=== PATIENT | male | born 1990 | race Caucasian/White ===

== ENCOUNTER 2016-06-23 16:00 | Emergency (ER) | payer OTHER ==
[~2016-06-23] VITALS: Ht 172.7 cm; Wt 68.4 kg
[2016-06-23 16:04] VITALS: Ht 172.7 cm; Wt 68.4 kg
[2016-06-23] MEDS ORDERED: NAPR1TAB9 PO (16:58)
[2016-06-23] MEDS ORDERED: TACR0.1O6 TOP (16:58)
--- NOTE | 2016-06-23 17:04 | EMERGENCY ROOM VISIT NOTE ---
History Report prepared by Cristi: Fitz Ramirez Under the Supervision of: Dr. Trell Bush M.D. First contact with patient: 16:49 Chief Complaint: ILLNESS Stated Complaint: BACK/NECK PAIN, FEVER, CHILLS, MA History of Present Illness The patient is a 25 year old male who presents to the Emergency Room with complaints of upper achy back pain that began two days ago. The patient rates his pain a 5/10 in severity. The patient's pain worsens with movement of his neck. The patient began to have headache 3 days ago. He began to worsen the next day. He then started experiencing neck pain, fever, weakness, and chills. He denies any abdominal pain or congestion. The patient travelled to [place] recently, getting back two weeks ago. He denies any sick contacts. The patient has been trying to alleviate his symptoms with Aleve and Advil. The patient did receive a flu shot. Source of History: patient Onset: 2 days ago Position: back (upper) Symptom Intensity: 5/10 Quality: ache Timing: other (persistent) Modifying Factors (Relieving): other (Advil) Associated Symptoms: + chills, + fevers, + headache, + neck pain, + weakness , No abdominal pain Note: He denies any congestion. Review of Systems All systems have been listed, reviewed, and are negative other than those previously mentioned. Please see Additional Medical History Sheet. Past Medical & Surgical Surgical Problems: (1) [place] teeth removed Family History Cancer Lung disease Social History Smoking Status: Never Smoker Smokeless Tobacco Use: No Alcohol Use: none Drug Use: none Marital Status: single Housing Status: lives alone Occupation Status: [employer] student Current/Historical Medications Scheduled PRN Naproxen (Aleve), 220 MG PO UD PRN for Pain Tacrolimus (Topical) (Tacrolimus), 1 APPLN TOP UD PRN for Eczema Allergies Coded Allergies: Latex (Verified Allergy, Unknown, Unknown, 06/23/16) Physical Exam Vital Signs Date Time Temp Pulse Resp B/P Pulse Ox O2 Delivery O2 Flow Rate FiO2 06/23/16 19:01 37.2 99 17 121/80 98 06/23/16 18:53 99 17 121/80 98 06/23/16 16:04 37.2 109 18 125/79 97 Room Air Physical Exam GENERAL: Patient awake, alert, oriented x 3. Patient follows commands. Patient does not appear toxic. Patient is adequately hydrated and well- nourished. Appears to be in no distress. SKIN: No erythema, pallor, cyanosis or rash HEENT: Normal head, pupils equal, reactive to light and accommodation. Ears normal. Oral cavity and posterior pharynx appear normal. Neck: Without adenopathy, no neck vein distention. Supple and nontender. No meningeal findings. LUNGS: Clear to auscultation. No wheezes, no rales, no rhonchi. HEART: No murmurs. No gallops. No rubs ABDOMEN: No masses, no rebound, no hepatomegaly or splenomegaly. EXTREMITIES: No signs of trauma. No pedal or pretibial edema. No calf or thigh tenderness. NEUROLOGIC: Cranial nerves II-XII within normal limits. No gross motor sensory function deficits. Medical Decision & Procedures Laboratory Results 06/23/16 17:18 Red Blood Count 5.04, Mean Corpuscular Volume 84.9, Mean Corpuscular Hemoglobin 31.0, Mean Corpuscular Hemoglobin Concent 36.4, Mean Platelet Volume 9.9, Neutrophils (%) (Auto) 68.1, Lymphocytes (%) (Auto) 20.3, Monocytes (%) (Auto) 11.2, Eosinophils (%) (Auto) 0.0, Basophils (%) (Auto) 0.4, Neutrophils # (Auto ) 3.83, Lymphocytes # (Auto) 1.14, Monocytes # (Auto) 0.63, Eosinophils # (Auto ) 0.00, Basophils # (Auto) 0.02 06/23/16 17:18 Test 06/23/16 17:15 06/23/16 17:18 Influenza Type A (RT-PCR) Neg for Influ A (NEG) Influenza Type B (RT-PCR) Neg for Influ B (NEG) White Blood Count 5.62 K/uL (4.8-10.8) Red Blood Count 5.04 M/uL (4.7-6.1) Hemoglobin 15.6 g/dL (14.0-18.0) Hematocrit 42.8 % (42-52) Mean Corpuscular Volume 84.9 fL (80-100) Mean Corpuscular Hemoglobin 31.0 pg (25-34) Mean Corpuscular Hemoglobin Concent 36.4 g/dl (32-36) Platelet Count 170 K/uL (130-400) Mean Platelet Volume 9.9 fL (7.4-10.4) Neutrophils (%) (Auto) 68.1 % Lymphocytes (%) (Auto) 20.3 % Monocytes (%) (Auto) 11.2 % Eosinophils (%) (Auto) 0.0 % Basophils (%) (Auto) 0.4 % Neutrophils # (Auto) 3.83 K/uL (1.4-6.5) Lymphocytes # (Auto) 1.14 K/uL (1.2-3.4) Monocytes # (Auto) 0.63 K/uL (0.11-0.59) Eosinophils # (Auto) 0.00 K/uL (0-0.5) Basophils # (Auto) 0.02 K/uL (0-0.2) RDW Standard Deviation 37.3 fL (36.4-46.3) RDW Coefficient of Variation 12.1 % (11.5-14.5) Immature Granulocyte % (Auto) 0.0 % Immature Granulocyte # (Auto) 0.00 K/uL (0.00-0.02) Anion Gap 8.0 mmol/L (3-11) Est Creatinine Clear Calc Drug Dose 120.3 ml/min Estimated GFR () 136.1 Estimated GFR (Non- 117.5 BUN/Creatinine Ratio 11.8 (10-20) Calcium Level 8.5 mg/dl (8.5-10.1) Laboratory results as stated above per my review. Medications Administered Medications (Trade) Dose Ordered Sig/Yue Route Start Time Stop Time Status Last Admin Dose Admin Ibuprofen (Motrin Tab) 600 mg NOW STAT PO 06/23/16 17:06 06/23/16 17:08 DC 06/23/16 17:27 600 MG ED Course 1649: Past medical records reviewed. The patient was evaluated in room C9. A complete history and physical examination was performed. 1706: Ibuprofen 600 mg PO 1850: Upon reevaluation, the patient appeared to have improvement of his symptoms. I discussed today's findings with him. He verbalized agreement of the treatment plan. He was discharged home. Medical Decision Nurses notes reviewed. Medical history sheet reviewed. Differential diagnosis includes but is not limited to: meningitis, encephalitis, influenza, and other viral infections. The patient has symptoms most suggestive of an influenza-like infection. Labs were evaluated. Please see above. The patient was given ibuprofen. He was drinking fluids. He was encouraged to continue pushing fluids at home. The patient has no evidence of encephalitis, meningitis or other serious bacterial infections. Impression Primary Impression: Influenza-like illness Scribe Attestation The scribe's documentation has been prepared under my direction and personally reviewed by me in its entirety. I confirm that the note above accurately reflects all work, treatment, procedures, and medical decision making performed by me. Departure Information Dispostion Home / Self-Care Referrals [facility] (PCP) Forms HOME CARE DOCUMENTATION FORM, IMPORTANT VISIT INFORMATION, WORK / SCHOOL INSTRUCTIONS Patient Instructions ED Viral Syndrome, My [facility] Additional Instructions 600 mg of ibuprofen every 6 hours until symptoms have resolved. Drink at least 2-3 quarts of liquid per day. Follow-up here or with a family physician in one week if symptoms are not resolving.
[2016-06-23] MEDS ORDERED: IBUPROFEN 600 MG TAB PO STA (17:06)
[2016-06-23 17:25] LABS: BASO % 0.4 %; BASO ABS # 0.02 K/uL (0-0.2); COMPLETE YES; HEMATOCRIT 42.8 % (42-52); LYMPH % 20.3 %; LYMPH ABS # 1.14 K/uL (1.2-3.4); MEAN CELL VOLUME 84.9 fL (80-100); MEAN CORPUSCULAR HGB CONC 36.4 g/dl (32-36); MEAN PLATELET VOLUME 9.9 fL (7.4-10.4); MONO % 11.2 %; NEUT % 68.1 %; PLATELET COUNT 170 K/uL (130-400); RED BLOOD COUNT 5.04 M/uL (4.7-6.1); WHITE BLOOD COUNT 5.62 K/uL (4.8-10.8)
[2016-06-23 17:42] LABS: BUN/CREATININE RATIO 11.8 (10-20); CALCIUM 8.5 mg/dl (8.5-10.1); CREATININE 0.9 mg/dl (0.60-1.40); POTASSIUM 4.1 mmol/L (3.5-5.1)
[2016-06-23 18:51] LABS: INFLUENZA A PCR Neg for Influ A (NEG); INFLUENZA B PCR Neg for Influ B (NEG)
[2016-06-23 19:01] VITALS: BP 121/80; PULSE 99; TEMP 37.2; O2SAT 98
== END 2016-06-23 19:03 | disposition home or self-care (01) ==
LOC: C.EDB 16:02 → C.EDC 19:03
DX: M54.6 Pain in thoracic spine (principal); R51 Headache; M54.2 Cervicalgia; R50.9 Fever, unspecified; R53.1 Weakness

== ENCOUNTER 2016-06-27 17:37 | Emergency (ER) | payer OTHER ==
[~2016-06-27] VITALS: Ht 172.7 cm; Wt 67.9 kg
[~2016-06-27 17:37] MED LIST: NAPR1TAB9 PO; TACR0.1O6 TOP
[2016-06-27 17:39] VITALS: TEMP 36.6; Ht 172.7 cm; Wt 67.9 kg
[2016-06-27] MEDS ORDERED: OPTIRAY 320 IV PRN (18:15)
--- NOTE | 2016-06-27 18:46 | DIAGNOSTIC IMAGING REPORT ---
CHEST CTA for PULMONARY ARTERIES CT DOSE: 206.45 mGy.cm HISTORY: Atypical chest pain. TECHNIQUE: Multiaxial CT images of the chest were performed following the intravenous administration of contrast to evaluate the pulmonary arteries. Maximal intensity projection images were also obtained. COMPARISON STUDY: None. FINDINGS: There is a normal caliber thoracic aorta with no evidence for dissection. There is no evidence for pulmonary embolus. No pleural effusions. No pneumothorax. The liver and spleen are unremarkable. No mediastinal or hilar lymphadenopathy. The central airways are patent. The lungs are clear. Minimal soft tissue density within the anterior mediastinum favors residual thymic tissue given the patient's age. IMPRESSION: No evidence for pulmonary embolus. Electronically signed by: Wayne Duong M.D. 06/27/2016 6:44 PM Dictated Date/Time: 06/27/2016 6:37 PM
--- NOTE | 2016-06-27 20:09 | EMERGENCY ROOM VISIT NOTE ---
History Report prepared by Cristi: Fady Villareal Under the Supervision of: Dr. Oscar Ellington D.O. First contact with patient: 18:07 Chief Complaint: RESPIRATORY PROBLEMS Stated Complaint: BACK, CHEST AND LEG PAIN Nursing Triage Summary: Went to [facility] today for back pain, CP, and leg pain. Denies history of blood clots. Ddimer was 515, sent for CT. History of Present Illness The patient is a 25 year old male who presents to the Emergency Room with complaints of a persistent illness beginning about 4 days ago. He notes having back pain, occasional chest pain, leg pain, and a headache. He went to [facility] and had an EKG and blood work. He notes the EKG was normal and that the blood work revealed a slightly elevated D-dimer at 5.15. He was referred to have a CT scan to check for potential clotting. Source of History: patient Onset: about 4 days ago Position: other (global) Quality: other (illness) Timing: other (persistent) Associated Symptoms: + back pain, + chest pain, + headache Note: The patient notes having leg pain. Review of Systems See HPI for pertinent positives & negatives. A total of 10 systems reviewed and were otherwise negative. Past Medical & Surgical Surgical Problems: (1) [place] teeth removed Family History Cancer Lung disease Social History Smoking Status: Never Smoker Alcohol Use: none Drug Use: none Marital Status: single Housing Status: lives alone Occupation Status: [employer] student Current/Historical Medications No Active Prescriptions or Reported Meds Allergies Coded Allergies: Latex (Verified Allergy, Unknown, Unknown, 06/27/16) Physical Exam Vital Signs Date Time Temp Pulse Resp B/P Pulse Ox O2 Delivery O2 Flow Rate FiO2 06/27/16 20:15 67 18 110/77 98 06/27/16 17:44 98 Room Air 06/27/16 17:39 36.6 76 18 123/76 96 Room Air Physical Exam CONSTITUTIONAL/VITAL SIGNS: Reviewed / noted above. GENERAL: Non-toxic in appearance. INTEGUMENTARY: Warm, dry, and [place]. HEAD: Normocephalic. EYES: without scleral icterus or trauma. ENT/OROPHARYNX: clear and moist. LYMPHADENOPATHY/NECK: Is supple without lymphadenopathy or meningismus. RESPIRATORY: Lungs clear and equal. CARDIOVASCULAR: Regular rate and rhythm. GI/ABDOMEN: Soft and nontender. No organomegaly or pulsatile mass. No rebound or guarding. Normal bowel sounds. EXTREMITIES: Warm and well perfused. BACK: No CVA tenderness. NEUROLOGICAL: Intact without focal deficits. PSYCHIATRIC: normal affect. MUSCULOSKELETAL: Normally developed with good muscle tone. Medical Decision & Procedures ER Provider Diagnostic Interpretation: CT results as stated below per my review and radiologist interpretation: CHEST CTA for PULMONARY ARTERIES FINDINGS: There is a normal caliber thoracic aorta with no evidence for dissection. There is no evidence for pulmonary embolus. No pleural effusions. No pneumothorax. The liver and spleen are unremarkable. No mediastinal or hilar lymphadenopathy. The central airways are patent. The lungs are clear. Minimal soft tissue density within the anterior mediastinum favors residual thymic tissue given the patient's age. IMPRESSION: No evidence for pulmonary embolus. Electronically signed by: Wayne Duong M.D. 06/27/2016 6:44 PM Dictated Date/Time: 06/27/2016 6:37 PM ED Course 1808: Previous medical records were reviewed. The patient was evaluated in room B11B. A complete history and physical examination was performed. 2015: On reevaluation, the patient is hemodynamically stable. I discussed the results and findings with the patient. He verbalized agreement of the treatment plan. The patient was discharged home. Medical Decision the differential that was considered includes acute myocardial infarction, acute coronary syndrome, myocarditis, pericarditis, pericardial effusions / tamponade, esophageal perforation, thoracic aortic dissection, pulmonary embolism, pneumonia, pneumothorax, pancreatitis, shingles, acute cholecystitis, perforated abdominal viscus. This is a 25-year-old male who was seen at [facility] earlier today and had blood work for chest pain. His D-dimer test was mildly elevated and he was sent here for a CT scan of his chest. The patient's exam was unremarkable. His lungs are clear. Vital signs stable. Chest CT was negative for PE or other acute abnormality. The patient was told results and discharged. Impression Primary Impression: Chest pain Additional Impression: Elevated d-dimer Scribe Attestation The scribe's documentation has been prepared under my direction and personally reviewed by me in its entirety. I confirm that the note above accurately reflects all work, treatment, procedures, and medical decision making performed by me. Departure Information Prescriptions No Active Prescriptions or Reported Meds Referrals [facility] (PCP) Patient Instructions My [facility] Additional Instructions CT scan of the chest did not show a blood clot or other abnormality. Follow-up with your doctor for further care and evaluation in 1-5 days if symptoms persist. Return to the emergency department for worsening or new symptoms or any concerns. You have been examined and treated today on an emergency basis only. This is not a substitute for, or an effort to provide, complete comprehensive medical care. It is impossible to recognize and treat all injuries or illnesses in a single emergency department visit. It is therefore important that you follow up closely with your doctor. Call as soon as possible for an appointment. Problem Qualifiers
[2016-06-27 20:15] VITALS: BP 110/77; PULSE 67; O2SAT 98
== END 2016-06-27 20:13 | disposition home or self-care (01) ==
LOC: C.EDB 17:40
DX: R07.9 Chest pain, unspecified (principal); R79.89 Other specified abnormal findings of blood chemistry; Z91.040 Latex allergy status; Z80.9 Family history of malignant neoplasm, unspecified